=== PATIENT | male | born 1975 | race American Indian/Alaskan Native ===

== ENCOUNTER 2018-06-09 21:22 | Emergency (ER) | payer SELFPAY ==
[2018-06-09 21:51] VITALS: TEMP 98.5
[2018-06-09] MEDS ORDERED: Tobramycin 0.3% OPHT SOLN OD STA (22:44)
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
[2018-06-09 23:18] VITALS: BP 135/72; PULSE 85; RESP 18; O2SAT 100
== END 2018-06-09 23:00 | disposition home or self-care (01) ==
LOC: ED 21:22
DX: T15.01XA Foreign body in cornea, right eye, initial encounter (principal); X58.XXXA Exposure to other specified factors, initial encounter; F17.210 Nicotine dependence, cigarettes, uncomplicated